=== PATIENT | male | born 1975 | race Caucasian/White ===

== ENCOUNTER 2019-06-20 05:13 | Inpatient (IN) | payer BC, SELFPAY ==
[2019-06-20] VITALS (10 sets, daily range): BP systolic 116–152; BP diastolic 75–90; PULSE 74–99; RESP 16–18; TEMP 36.3–37.3; O2SAT 94–99; BMI 28.0
--- NOTE | ~2019-06-20 | CT_ITS ---
EXAMINATION: CT abdomen pelvis w con DATE: 06/20/2019 07:46 INDICATION: Vomiting and pancreatitis. TECHNIQUE: Computed tomography (CT) of the abdomen and pelvis was performed with 100 mL Omnipaque-350 intravenous contrast. Automated exposure control and iterative reconstruction technique were employe d. The dose-length product was 819.55 mGy-cm. COMPARISON: None FINDINGS: Visualized lung bases are clear. Heart size is normal. No pericardial or pleural effusion. Prominent diffuse hepatic steatosis. Gallbladder, spleen, bilateral adrenal glands and kidneys are normal. Ther e is diffuse peripancreatic stranding with small amount of fluid tracking along the left anterior par arenal space consistent with acute interstitial pancreatitis. There is relatively homogeneous enhance ment of the pancreas with no evident necrosis. No loculated peripancreatic fluid collections. Punctat e calcific lesion at the uncinate process of the pancreas likely sequela of earlier chronic pancreati tis. The splenic, mesenteric and portal veins are patent. Minimal atherosclerotic calcification along the normal caliber abdominal aorta and right common iliac artery. Bowels including the appendix are normal. Partially decompressed bladder is normal. Small amount of likely reactive free fluid in the d eep pelvis. No free intraperitoneal gas. No pathologically enlarged abdominal or pelvic lymphadenopat hy. Minimal scattered degenerative skeletal changes. IMPRESSION: 1. Radiographically uncomplicated acute on chronic interstitial pancreatitis. 2. Prominent diffuse hepatic steatosis. Reviewed, dictated and finalized at location A.
--- NOTE | 2019-06-20 05:31 | ED.ALCOHOL ---
HPI - Alcohol General Chief Complaint: Unspecified Stated Complaint: Sore throat Time Seen by Provider: 06/20/19 05:31 Source: patient Mode of arrival: ambulatory Limitations: no limitations History of Present Illness HPI narrative: 43-year-old man with a history of alcohol abuse comes in today complaining of vomiting and abdominal pain. Patient states that he has been in recovery for year and during the COVID lock-down he became depressed and started drinking approximately 1 week ago. He last drank at midnight. He has a history of seizures during withdrawal and has used chlordiazepoxide in the past which helped him. He sees Dr. Patel. He denies history of pancreatitis. MD complaint: alcohol intoxication and alcohol dependence Last drink: hours (ago) (6) Previous visits for alcohol intoxication: Yes Recent trauma: No Associated symptoms: nausea, vomiting and other (hiccups) Treatments prior to arrival: none Related Data Home Medications Medication Instructions Recorded Confirmed metoprolol tartrate 25 mg PO BID 06/20/19 06/20/19 Allergies Allergy/AdvReac Type Severity Reaction Status Date / Time sulfamethoxazole Allergy Mild Anxiety Verified 06/20/19 05:36 [From ] trimethoprim [From ] Allergy Mild Anxiety Verified 06/20/19 05:36 Review of Systems Constitutional: Constitutional: Denies chills, Denies fever(s) and Denies weakness Eyes: Eyes: Denies change in vision and Denies photophobia ENT: Denies dysphagia, Denies nasal congestion and Reports sore throat Cardiovascular: Cardiovascular: Denies chest pain and Denies radiating jaw, neck or arm pain Respiratory: Respiratory: Denies cough, Denies dyspnea and Denies wheezing Gastrointestinal: Gastrointestinal: Reports abdominal pain, Denies diarrhea, Reports nausea and Reports vomiting Genitourinary: Genitourinary: Denies hematuria, Denies dysuria and Denies urinary frequency Musculoskeletal: Musculoskeletal: Denies arthralgias and Denies joint swelling Integumentary/Breasts: Skin/Breast: Denies pruritus, Denies erythema and Denies rash Neurologic: Denies vertigo, Denies dizziness and Denies syncope Psychiatric: Psychiatric: Denies anxiety and Denies depression Endocrine: Endocrine: Denies polydipsia and Denies polyuria Hematologic/Lymphatic: Hematologic/Lymphatic: Denies easy bleeding and Denies easy bruising Allergic/Immunologic: Allergic/Immunologic: Denies lip swelling, Denies throat swelling and Denies tongue swelling PMFSH Past Medical History Medical History ETOH abuse HTN (hypertension) PUD (peptic ulcer disease) Surgical History Surgical History Perforated gastric ulcer Social History Social History Alcohol intake: current Substance use: never Living arrangements: alone Gender identity (if verbalized by the patient): Male Exam Const: General: healthy appearing and alert Orientation/consciousness: patient oriented x3 Other: [id number] acute distress. HENMT: Ears: external ears normal and EAC's normal Mouth: Yes Normal oral and palatal mucosa present and Yes moist mucous membranes Throat: posterior oropharynx normal and uvula midline Course Vital Signs Vital signs: Vital Signs Temperature 37.0 C 06/20/19 05:23 Pulse Rate 99 06/20/19 05:23 Respiratory Rate 18 06/20/19 05:23 Blood Pressure 131/77 06/20/19 05:23 Pulse Oximetry 97 06/20/19 05:23 Temperature 36.9 C 06/20/19 07:12 Pulse Rate 97 06/20/19 07:12 Respiratory Rate 18 06/20/19 07:12 Blood Pressure 149/89 H 06/20/19 07:12 Pulse Oximetry 99 06/20/19 07:12 MDM - Alcohol Lab Data Result diagrams: 06/20/19 06:16 06/20/19 06:16 Labs: Lab Results 06/20/19 06/20/19 06/20/19 Range/Units 06:16 06:16
--- NOTE | 2019-06-20 05:52 | PC.NURSE ---
stated been making self puke tonight, and his throat hurts. He aches all over from binge drinking stated.
--- NOTE | 2019-06-20 05:57 | PC.NURSE ---
stated had a seizure last year when withdrawing from alcohol.
[2019-06-20] MEDS: ONDANSETRON HCL ODT 4 MG TABLET PO (06:10)
--- NOTE | 2019-06-20 06:19 | PC.NURSE ---
IV attempted, unsuccessful, MD notified..ordered oral medications
[2019-06-20 06:22] LABS: Basophils Absolute Auto 0.06 K/mm3 (0.00-0.10); Basophils Percent Auto 0.3 % (0.0-1.0); Eosinophils Absolute Auto 0.08 K/mm3 (0.02-0.50); Eosinophils Percent Auto 0.4 % (1.0-6.0); Hematocrit 37.7 % (40.0-54.0); Hemoglobin 13.8 g/dL (14.0-18.0); Immature Granulocyte Absolute 0.13 K/mm3 (0.00-0.00); Immature Granulocyte Percent A 0.7 % (0.0-0.0); Lymphocytes Absolute Auto 0.92 K/mm3 (1.10-4.50); Lymphocytes Percent Auto 4.6 % (18.0-42.0); Mean Corpuscular HGB Conc 36.6 g/dL (32.0-36.0); Mean Corpuscular Hemoglobin 32.9 pg (27.0-31.0); Monocytes Absolute Auto 1.52 K/mm3 (0.10-0.90); Monocytes Percent Auto 7.7 % (2.0-11.0); Neutrophils Absolute Auto 17.1 K/mm3 (1.7-7.2); Neutrophils Percent Auto 86.3 % (50.0-70.0); Platelet Count Result 175 K/mm3 (150-420); Red Blood Count 4.19 M/mm3 (4.70-6.10); Red Cell Distribution Width 13.2 % (11.6-14.4); White Blood Count 19.8 K/mm3 (4.8-10.8)
[2019-06-20 06:31] LABS: Add Urine Microscopic? YES; Appearance Urine Clear (Clear); Bilirubin Urine 1+ (Negative); Blood Urine 3+ (Negative); Color Urine Yellow (Yellow); Glucose Urine UA Negative (Negative); Ketones Urine 2+ (Negative); Leukocyte Esterase Ur Negative (Negative); Nitrate Urine Negative (Negative); Protein Urine 2+ (Negative); pH Urine 6.5 (5.0-8.0)
[2019-06-20 06:33] LABS: Partial Thromboplastin Time 30.2 SEC (22.3-31.6); Prothrombin Time 10.7 Seconds (9.64-11.0)
[2019-06-20 06:36] LABS: Amphetamine Screen Urine Negative (Negative); Barbiturate Screen Urine Negative (Negative); Benzodiazepines Screen Urine Negative (Negative); Cannabinoid Screen Urine Negative (Negative); Cocaine Screen Urine Negative (Negative); Methadone Screen Urine Negative (Negative); Opiate Screen Urine Negative (Negative); Phencyclidine Screen Urine Negative (Negative)
[2019-06-20 06:39] LABS: Alanine Aminotransferase 64 U/L (16-63); Albumin Level 3.6 g/dL (3.4-5.0); Alkaline Phosphatase 98 U/L (46-116); Anion Gap 22.8 mmol/L (7-16); Aspartate Amino Transferase 89 U/L (15-37); Blood Urea Nitrogen 24 mg/dL (7-18); Calcium 8.6 mg/dL (8.5-10.1); Carbon Dioxide 27 mmol/L (21-32); Chloride 81 mmol/L (98-108); Estimated CRCL calculation 53 ml/min; Estimated Glomerular Filt Rate 47; Ethanol 26 mg/dL (0-6); Glucose 197 mg/dL (70-99); Lipase 1174 U/L (73-393); Osmolality Calculated 275 mOsm/kg (285-295); Potassium 2.8 mmol/L (3.5-5.1); Sodium 128 mmol/L (136-145); Total Protein 8.6 g/dL (6.4-8.2)
[2019-06-20 06:43] LABS: Bacteria Urine Trace /hpf; WBC Urine 0-3 /hpf (0-3)
[2019-06-20] MEDS: CHLORDIAZEPOXIDE 25 MG CAPSULE PO (06:48)
[2019-06-20] MEDS: IBUPROFEN 600 MG TABLET PO (06:49)
[2019-06-20] MEDS: PANTOPRAZOLE SODIUM IV 40 MG VIAL IV PUSH (06:51)
--- NOTE | 2019-06-20 07:23 | PC.NURSE ---
admission process begun. erp entering admission orders. lawn care technician notified. pt ate popcicle without emesis.
--- NOTE | 2019-06-20 07:53 | PC.NURSE ---
report called to schuyler gray on med/surg floor. pt assigned to room 203-b. admission in progress. pt made NPO. iv infusing well
[2019-06-20 08:04] LABS: Salicylate 2.9 mg/dL (2.8-20.0)
[2019-06-20 08:05] LABS: Acetaminophen 0 ug/mL (10-30)
--- NOTE | 2019-06-20 08:58 | ADMGEN ---
This patient, Grey Altamirano, was admitted to 2nd Floor Room 203-2. Patient/family oriented to hospital policies and general routines including ID bracelet, bed and alarms, visiting hours, pain management, procedures, bathroom and other care routines, personal items, smoking policy, room service/diet, and visiting hours. Valuables list has been completed. Information on how to activate the Rapid Response Team has been discussed. Patient/Family are encouraged to report perceived risks to care and to ask questions if they do not understand what they are told or what they should do.
[2019-06-20] MEDS: DEXTROSE 5%/LACTATED RINGERS 1,000 ML 200 ML IV CONT ×2 (09:28→19:57)
[2019-06-20] MEDS: KCL 20 MEQ/SW 100 ML 100 ML 50 MEQ IVPB ×2 (09:28→11:29)
[2019-06-20] MEDS: HYDROMORPHONE HCL 2 MG/ML VIAL 0.5 MG IV PUSH ×5 (09:28→23:43)
[2019-06-20] MEDS: METOPROLOL TARTRATE 25 MG TABLET PO ×2 (09:29→21:59)
[2019-06-20 10:47] LABS: Creatine Kinase 346 U/L (39-308)
[2019-06-20] MEDS: LORAZEPAM INJ 2 MG/ML VIAL IV PUSH ×2 (11:30→18:37)
[2019-06-20] MEDS: METOCLOPRAMIDE HCL INJ 10 MG/2 ML VIAL 5 MG IV PUSH ×2 (12:41→21:59)
--- NOTE | 2019-06-20 12:58 | PM.IMHP ---
H&P: HPI History of Present Illness Chief complaint: Sore throat Narrative: Grey Altamirano is a 43 year old male that presented to the ED this a.m. with sore throat,vomiting and abdominal that he has had for approximately 1 week. Patient has a past medical history of EtOH or bruise, hypertension and peptic ulcer disease. According to the patient he has been in treatment for his abuse and due to the COVID-19 pandemic [id number] order his AA meetings has been canceled his kids has also left town to visit with family members. He noted that now all he does is go to work and come home and drink a 5th of hard liquor every day. Noted that he has not ate in about a week and when he drinks his abdominal pain worsens while he was in the ER the CT indicated pancreatitis his liver function tests were elevated, his potassium was low and his renal functions tests were elevated alcohol level did show 26 he was given Librium in the ED. in this patient noted that in the past when he was being treated for his alcohol abuse he was given a large amount of Librium and when he was discharged home the Librium was stopped which caused him to have a seizure. Will start patient on Librium with p.r.n. Ativan and CIWA protocol. Patient does note that his pain has gotten much better his now 3/10 , on admission he was a 10/10 he does continue to have left lower quad tenderness. Patient denies SOB, CP, palpitation, extremity numbness, lightheadness, dizziness, constipation, diarrhea, chills or fever. patient will remain NPO with ice chips. and re-evaluate in the a.m. he does also have uncontrollable hiccups Review of Systems Constitutional: Constitutional: Reports weakness and Reports other ( uncontrollable he cups) Cardiovascular: Cardiovascular: Denies chest pain at rest, Denies chest pain with activity, Denies syncope, Denies irregular heart rhythm, Denies leg edema, Denies dyspnea and Denies orthopnea Respiratory: Respiratory: Denies chest congestion, Denies cough, Denies pain on inspiration, Denies pain with cough, Denies dyspnea, Denies dyspnea on exertion and Reports other ( sore throat) Gastrointestinal: Gastrointestinal: Reports abdominal pain, Denies melena, Denies bloating, Denies hematochezia, Denies change in stool character, Denies coffee ground emesis, Denies constipation, Denies diarrhea, Denies nausea, Reports vomiting and Denies hematemesis Genitourinary: Genitourinary: Denies hematuria, Denies dysuria and Reports flank pain Musculoskeletal: Musculoskeletal: Reports no additional musculoskeletal complaints Integumentary/Breasts: Skin/Breast: Reports system reviewed and no additional complaints, except as docu Neurologic: Reports system reviewed and no additional complaints, except as documented Hematologic/Lymphatic: Hematologic/Lymphatic: Reports no additional hematologic/lymphatic complaints PMFSH Past Medical History Medical History ETOH abuse HTN (hypertension) PUD (peptic ulcer disease) Surgical History Surgical History Perforated gastric ulcer Social History Social History Smoking status: Current some day smoker Tobacco type: cigarettes Alcohol intake: current Substance use: never Living arrangements: alone Gender identity (if verbalized by the patient): Male Spiritual care concerns: No Agree to blood products: Yes Meds Home Medications and Allergies Home Medications Medication Instructions Recorded Confirmed Type chlordiazepoxide HCl 25 mg PO Q8H PRN #12 cap 06/20/19 Rx metoprolol tartrate 25 mg PO BID 06/20/19 06/20/19 History ondansetron 4 mg PO Q6H PRN #10 tablet 06/20/19 Rx Allergies Allergy/AdvReac Type Severity Reaction Status Date / Time sulfamethoxazole Allergy Mild Anxiety Verified 06/20/19 05:36 [From ] trimethoprim [F
--- NOTE | 2019-06-20 15:35 | PC.NURSE ---
Patient sleeping quietly in bed with no issues, call light at side.
[2019-06-20] MEDS: ONDANSETRON INJ 4 MG/2 ML VIAL IV PUSH (18:37)
--- NOTE | 2019-06-20 18:40 | PC.NURSE ---
Patient given medication per order for zofran and anxiety.
[2019-06-20] MEDS: CHLORDIAZEPOXIDE 25 MG CAPSULE 50 MG PO (21:59)
[2019-06-21] VITALS (8 sets, daily range): BP systolic 127–156; BP diastolic 75–95; PULSE 64–99; RESP 18–20; TEMP 36.6–36.9; O2SAT 93–97
[2019-06-21] MEDS: HYDROMORPHONE HCL 2 MG/ML VIAL 0.5 MG IV PUSH ×4 (00:15→09:44)
--- NOTE | 2019-06-21 00:15 | PC.NURSE ---
Mar will not let pain med reassessment be charted. Patient has no signs of pain and is sleeping/snoring @ this time.
[2019-06-21] MEDS: LORAZEPAM INJ 2 MG/ML VIAL IV PUSH ×2 (01:48→08:35)
[2019-06-21] MEDS: DEXTROSE 5%/LACTATED RINGERS 1,000 ML 200 ML IV CONT ×2 (01:48→07:22)
[2019-06-21] MEDS: METOCLOPRAMIDE HCL INJ 10 MG/2 ML VIAL 5 MG IV PUSH (05:39)
[2019-06-21 05:47] LABS: Hematocrit 32.3 % (40.0-54.0); Hemoglobin 11.3 g/dL (14.0-18.0); Mean Corpuscular Hemoglobin 32.7 pg (27.0-31.0); Mean Corpuscular Volume 93.4 fL (78.0-102.0); Mean Platelet Volume 9.8 fl (8.7-11.0); Platelet Count Result 139 K/mm3 (150-420); Red Blood Count 3.46 M/mm3 (4.70-6.10); Red Cell Distribution Width 13.6 % (11.6-14.4); White Blood Count 10.6 K/mm3 (4.8-10.8)
[2019-06-21 06:06] LABS: Alanine Aminotransferase 45 U/L (16-63); Albumin Level 2.5 g/dL (3.4-5.0); Alkaline Phosphatase 77 U/L (46-116); Anion Gap 8.6 mmol/L (7-16); Aspartate Amino Transferase 52 U/L (15-37); Bilirubin,Total 0.5 mg/dL (0.00-1.00); Blood Urea Nitrogen 20 mg/dL (7-18); Calcium 7.8 mg/dL (8.5-10.1); Carbon Dioxide 35 mmol/L (21-32); Chloride 90 mmol/L (98-108); Estimated CRCL calculation 83 ml/min; Estimated Glomerular Filt Rate > 60; Glucose 201 mg/dL (70-99); Lipase 491 U/L (73-393); Magnesium 2.2 mg/dL (1.8-2.4); Osmolality Calculated 280 mOsm/kg (285-295); Potassium 2.6 mmol/L (3.5-5.1); Sodium 131 mmol/L (136-145); Total Protein 6.7 g/dL (6.4-8.2)
[2019-06-21 06:11] LABS: Lactic Acid 1.2 mmol/L (0.4-2.0)
[2019-06-21] MEDS: CHLORDIAZEPOXIDE 25 MG CAPSULE 50 MG PO ×2 (08:35→20:11)
[2019-06-21] MEDS: METOPROLOL TARTRATE 25 MG TABLET PO ×2 (08:35→20:10)
--- NOTE | 2019-06-21 08:35 | PC.NURSE ---
pt refuses nicoderm patch. ativan 2mg given iv per patient request for hiccups.
--- NOTE | 2019-06-21 10:34 | PCDIET ---
Pt refused nicoderm patch. complains of hiccups. ativan 2mg given iv per patiejt
[2019-06-21] MEDS: POTASSIUM CHLORIDE 20 MEQ PACKET (FOR LIQUID) 40 MEQ PO (12:52)
--- NOTE | 2019-06-21 13:07 | P.PNIM_ITS ---
Progress Note: A&P Assessment and Plan (1) Alcohol intoxication: Qualifiers: Complication of substance-induced condition: uncomplicated Qualified Code(s): F10.920 - Alcohol use, unspecified with intoxication, uncomplicated Code(s): F10.929 - Alcohol use, unspecified with intoxication, unspecified Status: Acute Assessment and Plan: * patient alcohol elevated to 26 on admission * patient educated on alcohol cessation * patient will resume alcohol anonymous meeting once [id number] order his complete * patient placed on CIWA protocol (2) Vomiting: Qualifiers: Nausea presence: with nausea Vomiting Intractability: non-intractable Vomiting type: unspecified Qualified Code(s): R11.2 - Nausea with vomiting, unspecified Code(s): R11.10 - Vomiting, unspecified Status: Acute Assessment and Plan: * secondary to pancreatitis * have resolved * continue anti enemas (3) Pharyngitis: Qualifiers: Pharyngitis/tonsillitis etiology: unspecified etiology Qualified Code(s): J02.9 - Acute pharyngitis, unspecified Code(s): J02.9 - Acute pharyngitis, unspecified Status: Acute Assessment and Plan: * resolved * possibly secondary to excessive vomiting * continue antiemesis (4) Acute hypokalemia: Code(s): E87.6 - Hypokalemia Status: Acute Assessment and Plan: * potassium at 2.6 * patient received K riders in ED and another 1 today * repeat potassium level in the a.m. (5) Acute pancreatitis: Qualifiers: Acute pancreatitis complication: unspecified Pancreatitis type: unspecified pancreatitis type Qualified Code(s): K85.90 - Acute pancreatitis without necrosis or infection, unspecified Code(s): K85.90 - Acute pancreatitis without necrosis or infection, unspecified Status: Acute Assessment and Plan: * CT of the abdomen indicates Radiographically uncomplicated acute on chronic interstitial pancreatitis. * patient will remain NPO with IV fluids * continue pain medication to control pain, and adjust as needed * repeat labs in the a.m. (6) Acute hyponatremia: Code(s): E87.1 - Hypo-osmolality and hyponatremia Status: Acute Assessment and Plan: * possibly secondary to nausea vomiting * treat underlying condition * repeat labs in a.m. (7) HTN (hypertension): Code(s): I10 - Essential (primary) hypertension Status: Acute Assessment and Plan: * blood pressure 141/91 * continue metoprolol * vital signs is ordered * will continue to monitor (8) Elevated liver function tests: Code(s): R79.89 - Other specified abnormal findings of blood chemistry Status: Acute Assessment and Plan: * secondary to pancreatitis * liver function tests improving * will repeat in the a.m. * avoid nephrotoxins agents Subjective Date/time seen: 06/21/19 13:07 patient noted that he did not sleep well overnight. He did admit to having hallucinations yesterday and he continues to have the shakes today. he also continues to complain of epigastric pain that is being controlled with pain medication. patient will remain in overnight for 1 day until we better control his pain and his withdrawal symptoms have improved. he was able to tolerate a clear liquid diet today with some nausea. Patient denies SOB, CP, palpitation, extremity numbness, lightheadness, dizziness, constipation, diarrhea, chills or fever. Review of Systems Constitutional: Co
--- NOTE | 2019-06-21 13:07 | PM.IMPN ---
Progress Note: A&P Assessment and Plan (1) Alcohol intoxication: Qualifiers: Complication of substance-induced condition: uncomplicated Qualified Code(s): F10.920 - Alcohol use, unspecified with intoxication, uncomplicated Code(s): F10.929 - Alcohol use, unspecified with intoxication, unspecified Status: Acute Assessment and Plan: patient alcohol elevated to 26 on admission patient educated on alcohol cessation patient will resume alcohol anonymous meeting once [id number] order his complete patient placed on CIWA protocol (2) Vomiting: Qualifiers: Nausea presence: with nausea Vomiting Intractability: non-intractable Vomiting type: unspecified Qualified Code(s): R11.2 - Nausea with vomiting, unspecified Code(s): R11.10 - Vomiting, unspecified Status: Acute Assessment and Plan: secondary to pancreatitis have resolved continue anti enemas (3) Pharyngitis: Qualifiers: Pharyngitis/tonsillitis etiology: unspecified etiology Qualified Code(s): J02.9 - Acute pharyngitis, unspecified Code(s): J02.9 - Acute pharyngitis, unspecified Status: Acute Assessment and Plan: resolved possibly secondary to excessive vomiting continue antiemesis (4) Acute hypokalemia: Code(s): E87.6 - Hypokalemia Status: Acute Assessment and Plan: potassium at 2.6 patient received K riders in ED and another 1 today repeat potassium level in the a.m. (5) Acute pancreatitis: Qualifiers: Acute pancreatitis complication: unspecified Pancreatitis type: unspecified pancreatitis type Qualified Code(s): K85.90 - Acute pancreatitis without necrosis or infection, unspecified Code(s): K85.90 - Acute pancreatitis without necrosis or infection, unspecified Status: Acute Assessment and Plan: CT of the abdomen indicates Radiographically uncomplicated acute on chronic interstitial pancreatitis. patient will remain NPO with IV fluids continue pain medication to control pain, and adjust as needed repeat labs in the a.m. (6) Acute hyponatremia: Code(s): E87.1 - Hypo-osmolality and hyponatremia Status: Acute Assessment and Plan: possibly secondary to nausea vomiting treat underlying condition repeat labs in a.m. (7) HTN (hypertension): Code(s): I10 - Essential (primary) hypertension Status: Acute Assessment and Plan: blood pressure 141/91 continue metoprolol vital signs is ordered will continue to monitor (8) Elevated liver function tests: Code(s): R79.89 - Other specified abnormal findings of blood chemistry Status: Acute Assessment and Plan: secondary to pancreatitis liver function tests improving will repeat in the a.m. avoid nephrotoxins agents Subjective Date/time seen: 06/21/19 13:07 patient noted that he did not sleep well overnight. He did admit to having hallucinations yesterday and he continues to have the shakes today. he also continues to complain of epigastric pain that is being controlled with pain medication. patient will remain in overnight for 1 day until we better control his pain and his withdrawal symptoms have improved. he was able to tolerate a clear liquid diet today with some nausea. Patient denies SOB, CP, palpitation, extremity numbness, lightheadness, dizziness, constipation, diarrhea, chills or fever. Review of Systems Constitutional: Constitutional: Reports weakness and Reports other ( uncontrollable he cups) Cardiovascular: Cardiovascular: Denies chest pain at rest, Denies chest pain with activity, Denies syncope, Denies irregular heart rhythm, Denies leg edema, Denies dyspnea, Denies dyspnea on exertion and Denies orthopnea Respiratory: Respiratory: Denies chest congestion, Denies cough, Denies pain on inspiration, Denies pain with cough, Denies dyspnea, Denies d
[2019-06-21] MEDS: METOCLOPRAMIDE HCL 10 MG TABLET PO ×2 (13:48→22:15)
--- NOTE | 2019-06-21 14:19 | PC.NURSE ---
PAIN AND NAUSAE MED GIVEN. AT 1340. PT SLEEPING AT PRESENT.
--- NOTE | 2019-06-21 20:07 | PC.NURSE ---
Urine is dk chrissy.
[2019-06-21] MEDS: PANTOPRAZOLE 40 MG TABLET PO (20:10)
--- NOTE | 2019-06-21 20:15 | PC.NURSE ---
Patient asking nurse to please start another IV so he can have his IV pain medicine and IV Ativan. PO Ativan given. Patient told nurse that the pills don't work near as good as the one we gave him through the IV. Patient has been sleeping/snoring when nurse has checked on him.
--- NOTE | 2019-06-21 21:30 | PC.NURSE ---
Patient called nurses station and asked if he could have just one visitor for just a little while. Explained no visitor policy @ this time and why.
--- NOTE | 2019-06-21 23:13 | PM.EVENT ---
Event Note Event Note Event Note: Patient states he still having epigastric pain and nausea. He has attempted with liquids today. Alert, oriented. Mild acute distress. Mucous membranes are moist. Lungs clear to auscultation. Regular rate rhythm without murmur rub or gallop. Epigastric tenderness without rebound or guarding. Extremities are warm dry pink. Will cautiously advance liquids and try and transition him to oral nausea and pain medicines. I have examined the patient and reviewed the chart. I discussed the patient's care with Lachelle Morel APN and agree with her assessment and plan.
[2019-06-22] VITALS: BP 127/78; PULSE 84; RESP 16; TEMP 36.7; O2SAT 95
[2019-06-22] MEDS: LORAZEPAM 1 MG TABLET PO ×2 (02:43→10:12)
[2019-06-22] MEDS: METOCLOPRAMIDE HCL 10 MG TABLET PO ×2 (05:22→13:23)
[2019-06-22 05:37] LABS: Hematocrit 32.8 % (40.0-54.0); Hemoglobin 11.3 g/dL (14.0-18.0); Mean Corpuscular HGB Conc 34.5 g/dL (32.0-36.0); Mean Corpuscular Hemoglobin 32.7 pg (27.0-31.0); Mean Corpuscular Volume 94.8 fL (78.0-102.0); Mean Platelet Volume 9.8 fl (8.7-11.0); Platelet Count Result 168 K/mm3 (150-420); Red Blood Count 3.46 M/mm3 (4.70-6.10); Red Cell Distribution Width 13.4 % (11.6-14.4); White Blood Count 7.2 K/mm3 (4.8-10.8)
--- NOTE | 2019-06-22 05:50 | PC.NURSE ---
Unable to chart pain post treatment assessment for [place] given @ 0436. At 0550 patient appears to be sleeping by the rise and fall of his chest. No evidence of pain noted. Call light in reach.
[2019-06-22 06:00] LABS: Lactic Acid 1.2 mmol/L (0.4-2.0)
[2019-06-22 06:07] LABS: Alanine Aminotransferase 138 U/L (16-63); Albumin Level 2.4 g/dL (3.4-5.0); Alkaline Phosphatase 87 U/L (46-116); Anion Gap 8.7 mmol/L (7-16); Aspartate Amino Transferase 223 U/L (15-37); Bilirubin,Total 0.4 mg/dL (0.00-1.00); Blood Urea Nitrogen 12 mg/dL (7-18); Carbon Dioxide 35 mmol/L (21-32); Chloride 92 mmol/L (98-108); Estimated CRCL calculation 85 ml/min; Estimated Glomerular Filt Rate > 60; Glucose 211 mg/dL (70-99); Lipase 332 U/L (73-393); Osmolality Calculated 281 mOsm/kg (285-295); Potassium 2.7 mmol/L (3.5-5.1); Sodium 133 mmol/L (136-145); Total Protein 6.6 g/dL (6.4-8.2)
[2019-06-22 08:00] VITALS: BP 158/101; PULSE 111; RESP 18; TEMP 36.9; O2SAT 94
[2019-06-22 09:19] VITALS: PULSE 78
[2019-06-22] MEDS: METOPROLOL TARTRATE 25 MG TABLET PO (09:19)
[2019-06-22] MEDS: PANTOPRAZOLE 40 MG TABLET PO (09:19)
[2019-06-22] MEDS: NICOTINE (*PBKC) 21 MG PATCH 1 PATCH TRANSDERM (09:19)
[2019-06-22] MEDS: CHLORDIAZEPOXIDE 25 MG CAPSULE 50 MG PO (09:19)
[2019-06-22] MEDS: POTASSIUM CHLORIDE 20 MEQ TABLET 40 MEQ PO (10:11)
--- NOTE | 2019-06-22 12:36 | P.DS_ITS ---
DS: Diagnosis Admitting Diagnosis Admitting Diagnosis: Alcohol use, unspecified with intoxication, uncomplicated Discharge Diagnosis (1) Alcohol intoxication: Qualifiers: Complication of substance-induced condition: uncomplicated Qualified Code(s): F10.920 - Alcohol use, unspecified with intoxication, uncomplicated Code(s): F10.929 - Alcohol use, unspecified with intoxication, unspecified Status: Acute Assessment and Plan: * patient alcohol elevated to 26 on admission * patient educated on alcohol cessation * patient will resume alcohol anonymous meeting once [id number] order his complete * (2) Vomiting: Qualifiers: Nausea presence: with nausea Vomiting Intractability: non-intractable Vomiting type: unspecified Qualified Code(s): R11.2 - Nausea with vomiting, unspecified Code(s): R11.10 - Vomiting, unspecified Status: Acute Assessment and Plan: * secondary to pancreatitis * have resolved * continue anti nausea medication (3) Pharyngitis: Qualifiers: Pharyngitis/tonsillitis etiology: unspecified etiology Qualified Code(s): J02.9 - Acute pharyngitis, unspecified Code(s): J02.9 - Acute pharyngitis, unspecified Status: Acute Assessment and Plan: * resolved * possibly secondary to excessive vomiting * continue antiemesis (4) Acute hypokalemia: Code(s): E87.6 - Hypokalemia Status: Acute Assessment and Plan: * potassium at 2.7. will discharge home with supplement. potassium were reviewed checked in 1 week and results sent to PCP (5) Acute pancreatitis: Qualifiers: Acute pancreatitis complication: unspecified Pancreatitis type: unspec ified pancreatitis type Qualified Code(s): K85.90 - Acute pancreatitis without necrosis or infection, unspecified Code(s): K85.90 - Acute pancreatitis without necrosis or infection, unspecified Status: Acute Assessment and Plan: * CT of the abdomen indicates Radiographically uncomplicated acute on chronic interstitial pancreatitis. * patient will discharge home with anti nausea medication, and pain medication. (6) Acute hyponatremia: Code(s): E87.1 - Hypo-osmolality and hyponatremia Status: Acute Assessment and Plan: * possibly secondary to nausea vomiting * treat underlying conditio (7) HTN (hypertension): Code(s): I10 - Essential (primary) hypertension Status: Acute Assessment and Plan: * blood pressure 141/91 * continue metoprolol * vital signs is ordered * will continue to monitor (8) Elevated liver function tests: Code(s): R79.89 - Other specified abnormal findings of blood chemistry Status: Acute Assessment and Plan: * secondary to pancreatitis and increase use NSAIDs * liver function tests improving * will repeat labs as outpatient results will be sent to PCP DS: Summary Hospital Course Hospital Course: H&P in admission from 06/20/2019: Grey Altamirano is a 43 year old male that presented to the ED this a.m. with sore throat,vomiting and abdominal that he has had for approximately 1 week. Patient has a past medical history of EtOH or bruise, hypertension and peptic ulcer disease. According to the patient he has been in treatment for his abuse and due to the COVID-19 pandemic [id number] order his AA meetings has been canceled his kids has also left town to visit with family members. He noted that now all he does is go to work and come home and drink a 5th of hard liquo
--- NOTE | 2019-06-22 12:36 | PM.DS ---
DS: Diagnosis Admitting Diagnosis Admitting Diagnosis: Alcohol use, unspecified with intoxication, uncomplicated Discharge Diagnosis (1) Alcohol intoxication: Qualifiers: Complication of substance-induced condition: uncomplicated Qualified Code(s): F10.920 - Alcohol use, unspecified with intoxication, uncomplicated Code(s): F10.929 - Alcohol use, unspecified with intoxication, unspecified Status: Acute Assessment and Plan: patient alcohol elevated to 26 on admission patient educated on alcohol cessation patient will resume alcohol anonymous meeting once [id number] order his complete (2) Vomiting: Qualifiers: Nausea presence: with nausea Vomiting Intractability: non-intractable Vomiting type: unspecified Qualified Code(s): R11.2 - Nausea with vomiting, unspecified Code(s): R11.10 - Vomiting, unspecified Status: Acute Assessment and Plan: secondary to pancreatitis have resolved continue anti nausea medication (3) Pharyngitis: Qualifiers: Pharyngitis/tonsillitis etiology: unspecified etiology Qualified Code(s): J02.9 - Acute pharyngitis, unspecified Code(s): J02.9 - Acute pharyngitis, unspecified Status: Acute Assessment and Plan: resolved possibly secondary to excessive vomiting continue antiemesis (4) Acute hypokalemia: Code(s): E87.6 - Hypokalemia Status: Acute Assessment and Plan: potassium at 2.7. will discharge home with supplement. potassium were reviewed checked in 1 week and results sent to PCP (5) Acute pancreatitis: Qualifiers: Acute pancreatitis complication: unspecified Pancreatitis type: unspecified pancreatitis type Qualified Code(s): K85.90 - Acute pancreatitis without necrosis or infection, unspecified Code(s): K85.90 - Acute pancreatitis without necrosis or infection, unspecified Status: Acute Assessment and Plan: CT of the abdomen indicates Radiographically uncomplicated acute on chronic interstitial pancreatitis. patient will discharge home with anti nausea medication, and pain medication. (6) Acute hyponatremia: Code(s): E87.1 - Hypo-osmolality and hyponatremia Status: Acute Assessment and Plan: possibly secondary to nausea vomiting treat underlying conditio (7) HTN (hypertension): Code(s): I10 - Essential (primary) hypertension Status: Acute Assessment and Plan: blood pressure 141/91 continue metoprolol vital signs is ordered will continue to monitor (8) Elevated liver function tests: Code(s): R79.89 - Other specified abnormal findings of blood chemistry Status: Acute Assessment and Plan: secondary to pancreatitis and increase use NSAIDs liver function tests improving will repeat labs as outpatient results will be sent to PCP DS: Summary Hospital Course Hospital Course: H&P in admission from 06/20/2019: Grey Altamirano is a 43 year old male that presented to the ED this a.m. with sore throat,vomiting and abdominal that he has had for approximately 1 week. Patient has a past medical history of EtOH or bruise, hypertension and peptic ulcer disease. According to the patient he has been in treatment for his abuse and due to the COVID-19 pandemic [id number] order his AA meetings has been canceled his kids has also left town to visit with family members. He noted that now all he does is go to work and come home and drink a 5th of hard liquor every day. Noted that he has not ate in about a week and when he drinks his abdominal pain worsens while he was in the ER the CT indicated pancreatitis his liver function tests were elevated, his potassium was low and his renal functions tests were elevated alcohol level did show 26 he was given Librium in the ED. in this patient noted that in the past when he was being treated for his alcohol abuse he was g
== END 2019-06-22 16:35 | disposition home or self-care (01) | DRG 439 ==
LOC: CHSED 07:21 → CHS2ND 07:56
PROVIDERS: Family Medicine; Nurse Practitioner; Admitting Provider Emergency Medicine; Emergency Provider Emergency Medicine; Family Provider Family Medicine; PCP Family Medicine; Visit Provider Emergency Medicine
DX: K85.90 Acute pancreatitis without necrosis or infection, unspecified (principal); E87.1 Hypo-osmolality and hyponatremia; E87.6 Hypokalemia; I10 Essential (primary) hypertension; F10.10 Alcohol abuse, uncomplicated; K86.1 Other chronic pancreatitis; K27.9 Peptic ulcer, site unspecified, unspecified as acute or chronic, without hemorrhage or perforation; F10.129 Alcohol abuse with intoxication, unspecified; J02.9 Acute pharyngitis, unspecified
CPT/HCPCS: 36415; 74177; 80053; 80307; 81001; 82550; 83605; 83690; 83735; 85025; 85027; 85610; 85730; 87081; 87880; 96365; 96375; 99283; 99285; A9270; C9113; J1170; J2060; J2405; J2765; J3411; J3475; J3480; J7030; J7121; Q9965

== ENCOUNTER 2020-02-02 07:44 | Outpatient (CLI) | payer BC, SELFPAY ==
[2020-02-02 08:08] LABS: Post Vasectomy Sperm Presence None Seen (None Seen)
== END 2020-02-02 07:45 | disposition home or self-care (01) ==
LOC: CHSLAB 07:47
PROVIDERS: PCP Family Medicine; Visit Provider Family Medicine
DX: Z98.52 Vasectomy status (principal)
CPT/HCPCS: 88160; 89321

== ENCOUNTER 2023-04-28 09:04 | Outpatient (CLI) | payer BC, SELFPAY ==
--- NOTE | ~2023-04-28 | XR_ITS ---
Right Knee Technique: AP, lateral, and sunrise views were obtained. Clinical History: Pain Findings: No fracture or dislocation is seen. Osseous alignment is anatomic. There is mild spurring, most prominent at the medial joint line. Suggestion of lucency at the medial femoral condyle with sub chondral region. Soft tissues are unremarkable. No joint effusion is seen. Impression: Questionable early developing osteochondral lesion of the medial femoral condyle. Consider MR to furt her evaluate. Mild spurring, as above. Reviewed, dictated and finalized at location M. Impression: Questionable early developing osteochondral lesion of the medial femoral condyl e. Consider MR to further evaluate. Mild spurring, as above.
== END 2023-04-28 09:05 | disposition home or self-care (01) ==
LOC: CHSIMG 09:08
PROVIDERS: PCP Family Medicine; Visit Provider Family Medicine
DX: M25.561 Pain in right knee (principal)
CPT/HCPCS: 73562

== ENCOUNTER 2023-05-08 07:10 | Outpatient (CLI) | payer BC, SELFPAY ==
--- NOTE | ~2023-05-08 | MR_ITS ---
EXAMINATION: MR knee RT wo con DATE: 05/08/2023 08:22 INDICATION: osteochondritis dissecans, Rt. knee TECHNIQUE: Magnetic resonance imaging (MRI) of the right knee was performed without intravenous contr ast. Sequences included axial PD-weighted FS FSE, coronal PD-weighted FSE and PD-weighted FS FSE, sag ittal PD-weighted FSE, and sagittal T2-weighted FS FSE. COMPARISON: X-ray right knee 04/28/2023. FINDINGS: Medial compartment: Horizontally oriented tear of the posterior horn extending to the inferior surface, contiguous with a tear of the body that extends to the articular surface. Severe diffuse full-thickness cartilage loss with multiple subchondral cysts on both sides of the joint. Moderate osteophytosis. Lateral compartment: Meniscus intact. Moderate diffuse cartilage loss. Mild osteophytosis Patellofemoral compartment: Multifocal areas of full-thickness cartilage loss on the median ridge and medial facet with subchondr al cysts. Mild osteophytosis. Retinacula intact. Ligaments and tendons: The ACL, PCL, MCL, and LCL are intact. Remaining flexor and extensor tendons are intact. Fluid: No significant fluid collection. Osseous/other: No suspicious focal or diffuse marrow signal. IMPRESSION: Complex tear of the body and posterior horn, medial meniscus. Tricompartmental osteoarthritic changes, severe in the medial compartment, with multifocal areas of f ull-thickness cartilage loss and subchondral cysts. Reviewed, dictated and finalized at location K. IMPRESSION: Complex tear of the body and posterior horn, medial meniscus. Tricompartmental osteoarthritic changes, severe in the medial compartment, with multifocal areas of full-thickness cartilage loss and subchondral cysts.
== END 2023-05-08 07:11 | disposition home or self-care (01) ==
LOC: CHSIMG 07:11
PROVIDERS: PCP Family Medicine; Visit Provider Family Medicine
DX: M93.261 Osteochondritis dissecans, right knee (principal); S83.231A Complex tear of medial meniscus, current injury, right knee, initial encounter; M17.11 Unilateral primary osteoarthritis, right knee
CPT/HCPCS: 73721

== ENCOUNTER 2024-04-20 10:55 | Outpatient (CLI) | payer BC, SELFPAY ==
--- NOTE | ~2024-04-20 | XR_ITS ---
HISTORY: RT SHOULDER PAIN,LROM,CHRONIC X1YR COMPARISON: None TECHNIQUE: 2 views of the right shoulder were performed FINDINGS: No acute fracture. The glenohumeral and acromioclavicular joint space is maintained The visualized portion of the adjacent right lung is clear. The humeral head is well seated within the glenoid fossa. Degenerative disease is present within the humeral head, with osteophyte formation along its caudal-m ost border. IMPRESSION: Degenerative disease, without acute fracture or anterior dislocation. Reviewed, dictated and finalized at location A. ANESTHESIA MANAGER IMPRESSION: Degenerative disease, without acute fracture or anterior dislocati on.
--- OUTSIDE RECORDS SUMMARY | 2024-04-20 12:34 | XMS_ITS | Encounter Summary ---
Author Organization [facility] - [facility] Address [address] [place] [address] Care Team Providers Care Retail And Restaurant Associate Name Role Phone King Patel MD Primary Care Provider [phone] Encounter Details Date Type Department Care Team (Late st Contact Info) Description 07/23/2018 Abstract SFL CONVERSION [address] [place] [address] , Generic ConversionMD Social History Tobacco Use Types Packs/Day Years Used Date Smoking Tobacco: Never Smokeless Tobacco: Never Alcohol Use Standard Drinks/Week Comments Yes 0 (1 standard drink = 0.6 oz pur e alcohol) Sex and Gender Information Value Date Recorded Sex Assigned at Not on file Legal 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
--- OUTSIDE RECORDS SUMMARY | 2024-04-20 12:34 | XMS_ITS | Clinical Summary ---
Author Organization [facility] Address [facility] [place] [address] Care Team Providers Care Gas Engine Operator Name Role Phone King Patel MD Primary Care Provider [phone] Allergies Active Allergy Reactions Criticality Noted Date Comments Sulfamethoxazole-Trimethoprim Anaphylaxis High 05/15 Social History Tobacco Use Types Packs/Day Years Used Date Smoking Tobacco: Never Smokeless Tobacco: Never Alcohol Use Standard Drinks/Week Comments Yes 0 (1 standard drink = 0.6 oz pur e alcohol) Sex and Gender Information Value Date Recorded Sex Assigned at Not on file 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 Gender Identity Not on file Sexual Orientation Not on file Last Filed Vital Signs Vital Sign Reading Time Taken Comments Blood Pressure 171/98 05/15/2017 11:32 AM CDT Pulse 79 05/15/2017 11:32 AM CDT Temperature 36.6 C (97.9 F) 05/15/2017 11:32 AM CDT Respiratory Rate 18 05/15/2017 11:3 2 AM CDT Oxygen Saturation 100% 05/15/2017 12: 36 PM CDT Inhaled Oxygen Concentration - - Weight 99.7 kg (219 lb 12.8 oz) 018 11:32 AM CDT Height 185 cm (6' 0.84 ) 05/15/2017 11: 32 AM CDT Body Mass Index 29.13 05/15/2017 11:32 AM CDT Plan of Treatment Health Maintenance Due Date Last Done Comments Colorectal Cancer Screening Colonoscopy (10 Years) 1976 Annual Physical 08/21/1979 Hepatitis C 1994 DTaP, Tdap and Td Vaccines ( 1 - Tdap) 08/21/1995 Hepatitis B Vaccines (1 of 3 - 19+ 3-dose series) 08/21/1995 COVID-19 Vaccine (2023-2 5 season) 2023 Influenza Adult (#1) 2023 Meningococcal B Vaccine Aged Out No l onger eligible based on patient's age to complete this topic Meningococcal Vaccine Aged Out No suly addis eligible based on patient's age to complete this topic Pneumococcal Vaccine: Pediat rics (0 to 5 Years) and At-Risk Patients (6 to 64 Years) Aged Out No longer eligible b ased on patient's age to complete this topic RSV Immunizations Under 20 Months Aged Out No longer eligible based on patient's age to complete this topic Insurance MEDICAID Advance Directives Documents on File Type Date Recorded Patient Cd [employer] 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
== END 2024-04-20 10:56 | disposition home or self-care (01) ==
LOC: CHSIMG 10:57
PROVIDERS: PCP Family Medicine; Visit Provider Orthopaedic Surgery
DX: M25.511 Pain in right shoulder (principal)
CPT/HCPCS: 73030

== ENCOUNTER 2024-12-05 07:35 | Outpatient (CLI) | payer BC, SELFPAY ==
--- NOTE | ~2024-12-05 | XR_ITS ---
EXAMINATION: XR shoulder RT min 2V, 12/05/2024 7:38 CDT HISTORY: M25.511 - Pain in right shoulder COMPARISON: No comparisons available. Findings: No acute fracture or malalignment. Moderate degenerative changes Soft tissues unremarkable. Impression: No acute fracture or malalignment. Reviewed, dictated and finalized at location P. Impression: No acute fracture or malalignment.
== END 2024-12-05 07:36 | disposition home or self-care (01) ==
PROVIDERS: PCP Family Medicine
DX: M25.511 Pain in right shoulder (principal)
CPT/HCPCS: 73030